=== PATIENT | male | born 1965 | race Hispanic/Latino ===

== ENCOUNTER 2021-01-08 14:26 | Emergency (ER) | payer BC ==
--- OUTSIDE RECORDS SUMMARY | 2021-01-08 14:29 | XMS REPORT | Continuity of Care Document ---
:1965 Author Organization [facility] t Address [address] [place] [address] Dr. Moore [address] [place] [id number] Care Team Providers Name Role Phone Dianna GARCES T Attending Clinician Problems This patient has no known problems. Allergies, Adverse Reactions, Alerts This patient has no known allergies or adverse reactions. Medications This patient has no known medications. Procedures This patient has no known procedures. Encounters Start End Encounter Admission Attending Care Care Encounter Source Date/Time Date/Time Type Type Clinicians Facility Department ID 2020-12-28 2020-12-28 Office HAILEE Bustamante [id number] 13:16:47 13:44:07 Visit Radha Corado [id number] [place] [id number] [place] [id number] nal 085 Building Results This patient has no known results.
[2021-01-08 16:18] LABS: Urine Blood 2+ (Negative); Urine Glucose Negative (Negative); Urine Protein Negative (Negative)
[2021-01-08 17:06] LABS: Urine Amorphous Sediment TRACE /HPF (NONE SEEN); Urine Bacteria 20-50 /HPF (NONE SEEN)
--- NOTE | 2021-01-08 17:09 | RAD REPORT ---
EXAM DESCRIPTION: CT - Abdomen Pelvis Wo Contrast - 01/08/2021 4:47 pm CLINICAL HISTORY: Urinary retention COMPARISON: <Comparisons> TECHNIQUE: Axial [address] imaging of the abdomen and pelvis was performed without IV contrast. No IV contrast was given because of allergy, abnormal renal function, patient refusal or physician re quest. No oral contrast given. All CT scans are performed using dose optimization technique as appropriate and may include automated exposure control or mA/KV adjustment according to patient size. FINDINGS: Minimal scarring or atelectasis in each lung base. No cardiomegaly or pericardial effusion . Liver size is normal. 3.9 centimeter homogeneous thin-walled fluid attenuation mass is present segmen t IV most likely an incidental cyst. A few additional very small sub centimeter low-density areas are present too small to characterize on noncontrast imaging. Liver attenuation is borderline to mild fa tty infiltrated. Spleen and pancreas show no suspicious findings. Thickened bile or sandlike stones collect in the dep endent portion of the gallbladder. No active gallbladder process seen. No biliary dilatation. Patient has mild bilateral hydronephrosis down to the UVJ level more prominent on the right. There ar e no obstructing or nonobstructing calculi seen. No significant adrenal finding. Isodense renal mass es and pyelonephritis cannot be excluded in the absence of IV contrast. Urinary bladder is fully cont racted around a Guthrie catheter. No bladder calculi seen. Bladder wall evaluation cannot be performed. Patient has an enlarged prostate gland. No dilated bowel loops or bowel wall thickening. No appendicitis findings. No free air, free fluid or inflammatory stranding. No hernia, mass or bulky lymphadenopathy. No suspicious bony findings. IMPRESSION: Mild bilateral hydronephrosis without obstructing calculus or mass identifiable. Bladder is fully contracted around a Guthrie catheter limiting assessment. Prostate gland is enlarged. Patient may have prostatic urethral outlet obstruction. Full assessment is limited is the absence of IV contrast. Nonacute findings detailed in the body of the report.
[2021-01-08 17:24] LABS: Basophils % 0.5 % (0-1.3); Hematocrit 44.6 % (39.6-49.0); Lymphocytes % 7.4 % (15.3-44.8); MPV 6.9 fL (7.6-11.3); RBC Red Blood Cell Count 5.18 M/uL (4.33-5.43)
[2021-01-08 17:34] LABS: Potassium 4.2 mmol/L (3.5-5.1)
[2021-01-08] MEDS ORDERED: CEFTRIAXONE/SWI 1gm 1 GM/10 ML SYR ONE (17:38)
--- NOTE | 2021-01-08 17:46 | ER ---
Nurse's Notes [facility] Name: Steve Smith Age: 55 yrs Sex: Male : 1965 Arrival Date: 01/08/2021 Time: 14:29 Bed 5 Private MD: Diagnosis: Retention of urine;Urinary tract infection, site not specified Presentation: 01/08 14:37 Chief complaint: Spouse and/or significant other states: "he has not been able to pee jd3 and if he has it is just a little trickle.". Coronavirus screen: At this time, the client does not indicate any symptoms associated with coronavirus-19. Ebola Screen: Patient negative for fever greater than or equal to 101.5 degrees Fahrenheit, and additional compatible Ebola Virus Disease symptoms. Initial Sepsis Screen: Does the patient meet any 2 criteria? No. Patient's initial sepsis screen is negative. Does the patient have a suspected source of infection? No. Patient's initial sepsis screen is negative. Risk Assessment: Do you want to hurt yourself or someone else? Patient reports no desire to harm self or others. Onset of symptoms was January 08, 2021. 14:37 Method Of Arrival: Ambulatory jd3 14:37 Acuity: GERTRUDIS 3 jd3 Historical: - Allergies: 14:39 No Known Allergies; jd3 - Home Meds: 14:39 prostate med [Active]; blood pressure med [Active]; jd3 - PMHx: 14:39 prostate problem; Hypertension; jd3 - PSHx: 14:39 Hernia repair; jd3 - Immunization history:: Adult Immunizations up to date. - Social history:: Smoking status: Patient denies any tobacco usage or history of. Screenin:47 Abuse screen: Denies threats or abuse. Denies injuries from another. Nutritional ss screening: No deficits noted. Tuberculosis screening: Never had TB. Fall Risk None identified. Assessment: 15:30 General: Appears in no apparent distress. Behavior is calm, cooperative. Pain: Pain ss currently is 10 out of 10 on a pain scale. Neuro: Level of Consciousness is awake, alert, obeys commands, Oriented to person, place, time, situation. Cardiovascular: Patient's skin is warm and dry. Respiratory: Respiratory effort is even, unlabored, Respiratory pattern is regular, symmetrical. GI: No signs and/or symptoms were reported involving the gastrointestinal system. : Reports inability to void. EENT: No signs and/or symptoms were reported regarding the EENT system. Derm: Skin is pink, warm \\T\\ dry. Musculoskeletal: No signs and/or symptoms reported regarding the musculoskeletal system. 17:19 Reassessment: Patient appears in no apparent distress at this time. Patient and/or hb family updated on plan of care and expected duration. Pain level reassessed. Patient is alert, oriented x 3, equal unlabored respirations, skin warm/dry/pink. 18:04 Reassessment: Patient appears in no apparent distress at this time. Patient and/or hb family updated on plan of care and expected duration. Pain level reassessed. Patient is alert/active/playful, equal unlabored respirations, skin warm/dry/pink. Vital Signs: 14:39 BP 166 / 95; Pulse 95; Resp 17 S; Temp 97.1(TE); Pulse Ox 98% on R/A; Weight 68.04 kg jd3 (R); Height 5 ft. 2 in. (158 cm) (R); Pain 10/10; 16:00 BP 153 / 81; Pulse 75; Resp 16; Pulse Ox 98% on R/A; hb 17:00 BP 152 / 80; Pulse 75; Resp 15; Pulse Ox 99% ; hb 14:39 Body Mass Index 27.12 (68.04 kg, 158 cm) jd3 ED Course: 14:29 Patient arrived in ED. ds1 14:38 Triage completed. jd3 14:41 Arm band placed on. jd3 14:42 Nic Sabillon NP is PHCP. pm1 14:42 Neno Sharpe MD is Attending Physician. pm1 15:40 Suzette Lerner, ROSA is Primary Nurse. ss 15:47 Patient has correct armband on for positive identification. Bed in low position. Call light in reach. Side rails up X 1. Adult w/ patient. 15:47 Bladder scan completed. 482mL. Patient maintains SpO2 saturation greater than 95% on ss room air. 15:55 Guthrie cath inserted, using sterile technique, 16 Fr., by ga, balloon inflated, to jd3 gravity drainage, urine specimen collected. 16:47 CT Abd/Pelvis - Without Contrast In Process Unspecified. EDMS 18:04 No provider procedures requiring assistance completed. IV discontinued, intact, hb bleeding controlled, No redness/swelling at site. Administered Medications: 17:36 Drug: Rocephin (cefTRIAXone) 1 grams Route: IV; Rate: calculated rate; Site: right hb antecubital; 17:37 Follow up: IV Status: Completed infusion; IV Intake: 10ml hb 17:53 Follow up: Response: No adverse reaction hb Intake: 17:37 IV: 10ml; Total: 10ml. hb Outcome: 17:45 Discharge ordered by MD. pm1 18:04 Discharged to home ambulatory, with family. hb 18:04 Condition: stable 18:04 Discharge instructions given to patient, family, Instructed on discharge instructions, follow up and referral plans. medication usage, Demonstrated understanding of instructions, follow-up care, medications, Prescriptions given X 1. 18:14 Patient left the ED. hb 18:23 Patient left the ED. hb Signatures: Dispatcher [facility] JonesCami ds1 Suzette Lerner RN RN ss Marinas, Patrick, NP BUTTON TACKER pm1 Elba Longoria RN RN hb Davies, Jonathon, RN RN jd3
--- NOTE | 2021-01-08 17:46 | EDPHYS ---
Physician Documentation [facility] Name: Steve Smith Age: 55 yrs Sex: Male : 1965 Arrival Date: 01/08/2021 Time: 14:29 Bed 5 Private MD: ED Physician Neno Sharpe HPI: 01/08 16:26 This 55 yrs old Male presents to ER via Ambulatory with complaints of Urinary pm1 Issue. 16:26 The patient presents with urinary symptoms, retention. Onset: The symptoms/episode pm1 began/occurred yesterday. Modifying factors: The symptoms are alleviated by nothing, the symptoms are aggravated by nothing. Associated signs and symptoms: Pertinent positives: abdominal pain, Pertinent negatives: fever. Severity of symptoms: in the emergency department the symptoms are actually worse. The patient has experienced similar episodes in the past, a few times. The patient has not recently seen a physician. Historical: - Allergies: 14:39 No Known Allergies; jd3 - Home Meds: 14:39 prostate med [Active]; blood pressure med [Active]; jd3 - PMHx: 14:39 prostate problem; Hypertension; jd3 - PSHx: 14:39 Hernia repair; jd3 - Immunization history:: Adult Immunizations up to date. - Social history:: Smoking status: Patient denies any tobacco usage or history of. ROS: 16:26 Constitutional: Negative for fever, chills, and weight loss, Cardiovascular: Negative pm1 for chest pain, palpitations, and edema, Respiratory: Negative for shortness of breath, cough, wheezing, and pleuritic chest pain. 16:26 Back: Negative for injury and pain. 16:26 MS/Extremity: Negative for injury and deformity, Skin: Negative for injury, rash, and discoloration. 16:26 Neuro: Negative for headache, weakness, numbness, tingling, and seizure. 16:26 Abdomen/GI: Positive for abdominal pain, Negative for nausea, vomiting, and diarrhea. 16:26 : Positive for difficulty urinating. 16:26 All other systems are negative. Exam: 16:26 Constitutional: This is a well developed, well nourished patient who is awake, alert, pm1 and in no acute distress. Head/Face: Normocephalic, atraumatic. 16:26 Back: No spinal tenderness. No costovertebral tenderness. Full range of motion. Skin: Warm, dry with normal turgor. Normal color with no rashes, no lesions, and no evidence of cellulitis. MS/ Extremity: Pulses equal, no cyanosis. Neurovascular intact. Full, normal range of motion. 16:26 Eyes: Exam is negative for acute changes, Extraocular movements: intact throughout, Conjunctiva: normal, Sclera: no acute changes. 16:26 ENT: Mouth: Lips: normal, Oral mucosa: normal, pink and intact, moist. 16:26 Cardiovascular: Rate: normal, Rhythm: regular, Pulses: no pulse deficits are appreciated. 16:26 Respiratory: Exam negative for acute changes, respiratory distress, shortness of breath. 16:26 Abdomen/GI: Inspection: abdomen appears normal, Palpation: soft, in all quadrants, mild abdominal tenderness, in the suprapubic area. 16:26 Neuro: Exam negative for acute changes, Orientation: is normal, Mentation: is normal, Motor: is normal, moves all fours. Vital Signs: 14:39 BP 166 / 95; Pulse 95; Resp 17 S; Temp 97.1(TE); Pulse Ox 98% on R/A; Weight 68.04 kg jd3 (R); Height 5 ft. 2 in. (158 cm) (R); Pain 10/10; 16:00 BP 153 / 81; Pulse 75; Resp 16; Pulse Ox 98% on R/A; hb 17:00 BP 152 / 80; Pulse 75; Resp 15; Pulse Ox 99% ; hb 14:39 Body Mass Index 27.12 (68.04 kg, 158 cm) jd3 MDM: 14:52 Patient medically screened. pm1 17:43 Data reviewed: vital signs. Data interpreted: Pulse oximetry: on room air is 99 %. pm1 Interpretation: normal. 17:43 Counseling: I had a detailed discussion with the patient and/or guardian regarding: the pm1 historical points, exam findings, and any diagnostic results supporting the discharge/admit diagnosis, lab results, radiology results, the need for outpatient follow up, a urologist, to return to the emergency department if symptoms worsen or persist or if there are any questions or concerns that arise at home. 01/08 15:04 Order name: Urine Microscopic Only; Complete Time: 17:42 pm1 01/08 16:18 Order name: Urine Dipstick-Ancillary; Complete Time: 16:34 EDMS 01/08 16:36 Order name: CBC with Diff pm1 01/08 16:36 Order name: BMP pm1 01/08 16:37 Order name: CBC with Automated Diff; Complete Time: 17:42 EDMS 01/08 16:37 Order name: Basic Metabolic Panel; Complete Time: 17:42 EDMS 01/08 15:04 Order name: Bladder Scanner; Complete Time: 15:47 pm1 01/08 15:04 Order name: Urine Dipstick-Ancillary (obtain specimen); Complete Time: 16:13 pm1 01/08 15:04 Order name: Guthrie; Complete Time: 15:55 pm1 01/08 16:11 Order name: CT Abd/Pelvis - Without Contrast; Complete Time: 17:11 pm1 01/08 17:07 Order name: Urine Culture EDMS 01/08 17:46 Order name: Leg Bag; Complete Time: 18:04 pm1 Administered Medications: 17:36 Drug: Rocephin (cefTRIAXone) 1 grams Route: IV; Rate: calculated rate; Site: right hb antecubital; 17:37 Follow up: IV Status: Completed infusion; IV Intake: 10ml hb 17:53 Follow up: Response: No adverse reaction hb Disposition: 01/08/21 17:45 Discharged to Home. Impression: Retention of urine, Urinary tract infection, site not specified. - Condition is Stable. - Discharge Instructions: Guthrie Catheter Care, Adult, Acute Urinary Retention, Male, Urinary Tract Infection, Adult. - Prescriptions for Bactrim DS 800- 160 mg Oral Tablet - take 1 tablet by ORAL route every 12 hours for 10 days; 20 tablet. - Medication Reconciliation Form, Thank You Letter, Antibiotic Education, Prescription Opioid Use form. - Follow up: Emergency Department; When: As needed; Reason: Worsening of condition. Follow up: Private Physician; When: 2 - 3 days; Reason: Recheck today's complaints, Continuance of care, Re-evaluation by your physician. - Problem is new. - Symptoms have improved. Signatures: Dispatcher [employer] EDMS Nic Sabillon, INTENSIVIST INTENSIVIST pm1 Elba Longoria RN RN hb Davies, Jonathon, RN RN Neno Perez MD MD ma2 Corrections: (The following items were deleted from the chart) 18:14 17:45 01/08/2021 17:45 Discharged to Home. Impression: Retention of urine; Urinary hb tract infection, site not specified. Condition is Stable. Forms are Medication Reconciliation Form, Thank You Letter, Antibiotic Education, Prescription Opioid Use. Follow up: Emergency Department; When: As needed; Reason: Worsening of condition. Follow up: Private Physician; When: 2 - 3 days; Reason: Recheck today's complaints, Continuance of care, Re-evaluation by your physician. Problem is new. Symptoms have improved. pm1 18:23 18:14 01/08/2021 17:45 Discharged to Home. Impression: Retention of urine; Urinary hb tract infection, site not specified. Condition is Stable. Discharge Instructions: Urinary Tract Infection, Adult, Guthrie Catheter Care, Adult, Acute Urinary Retention, Male. Prescriptions for Bactrim DS 800-160 mg Oral Tablet - take 1 tablet by ORAL route every 12 hours for 10 days; 20 tablet. and Forms are Medication Reconciliation Form, Thank You Letter, Antibiotic Education, Prescription Opioid Use. Follow up: Emergency Department; When: As needed; Reason: Worsening of condition. Follow up: Private Physician; When: 2 - 3 days; Reason: Recheck today's complaints, Continuance of care, Re-evaluation by your physician. Problem is new. Symptoms have improved. hb
[2021-01-08 18:19] VITALS: TEMP 97.1
[2021-01-08 18:23] VITALS: BP 152/80; O2SAT 99
== END 2021-01-08 18:23 | disposition home or self-care (01) ==
LOC: ER 14:26
DX: N39.0 Urinary tract infection, site not specified (principal); I10 Essential (primary) hypertension
CPT/HCPCS: 87088; 85025; 87086; 80048; 36415; 74176; J0696; 81003; 81015

== ENCOUNTER 2021-04-17 21:04 | Emergency (ER) | payer BC ==
[2021-04-17 21:50] LABS: Urine Blood 1+ (Negative); Urine Glucose Negative (Negative); Urine Protein Negative (Negative)
--- NOTE | 2021-04-17 22:17 | ER ---
Nurse's Notes [facility] Name: Steve Smith Age: 56 yrs Sex: Male : 1965 Arrival Date: 04/17/2021 Time: 21:08 Bed 19 Private MD: Diagnosis: Urinary Retention Presentation: 04/17 21:18 Chief complaint: Patient states: Pt's son states pt has had prostate treatment and had wg a catheter removed 2 weeks ago. Since, pt has had increased problems urinating and has produced minimal output with the urge to void. Pt c/o of bladder pain as well as pain to the shaft of his penis. 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 Pt started a new antibiotic today. Coronavirus screen: Vaccine status: Patient reports receiving the 2nd dose of the covid vaccine. Client denies travel out of the [place] in the last 14 days. At this time, the client does not indicate any symptoms associated with coronavirus-19. Coronavirus screen: Vaccine status: Patient reports being unvaccinated. Ebola Screen: Patient negative for fever greater than or equal to 101.5 degrees Fahrenheit, and additional compatible Ebola Virus Disease symptoms Patient denies exposure to infectious person. Patient denies travel to an Ebola-affected area in the 21 days before illness onset. Initial Sepsis Screen: Does the patient meet any 2 criteria? No. Patient's initial sepsis screen is negative. Does the patient have a suspected source of infection? No. Patient's initial sepsis screen is negative. Risk Assessment: Do you want to hurt yourself or someone else? Patient reports no desire to harm self or others. Onset of symptoms was March 27, 2021. 21:18 Method Of Arrival: Ambulatory 21:18 Acuity: GERTRUDIS 3 Triage Assessment: 21:23 General: Appears distressed, uncomfortable, well groomed. General: Behavior is cooperative, appropriate for age, restless. Pain: Complains of pain in bladder and penis Pain currently is 10 out of 10 on a pain scale. Historical: - Allergies: 21:23 No Known Allergies; wg - Home Meds: 21:23 sulfamethoxazole-trimethoprim Oral [Active]; wg - PMHx: 21:23 Prostate problem; Hypertension; wg - Immunization history:: Adult Immunizations up to date. - Social history:: Smoking status: Patient denies any tobacco usage or history of. Screenin:50 Abuse screen: Denies threats or abuse. Denies injuries from another. Nutritional bc5 screening: No deficits noted. Tuberculosis screening: No symptoms or risk factors identified. Fall Risk None identified. No fall in past 12 months (0 pts). No secondary diagnosis (0 pts). No IV (0 pts). Ambulatory Aid- None/Bed Rest/Nurse Assist (0 pts). Gait- Normal/Bed Rest/Wheelchair (0 pts) Mental Status- Oriented to own ability (0 pts). Total Hatch Fall Scale indicates No Risk (0-24 pts). Assessment: 21:52 Reassessment: Pt c/o urinary retention. Guthrie inserted using sterile technique, Pt bc5 tolerated well. Vital Signs: 21:18 BP 140 / 78; Pulse 86; Resp 18; Temp 98.9; Pulse Ox 99% on R/A; Weight 71.67 kg; Height wg 5 ft. 8 in. (172.72 cm); Pain 10/10; 22:44 BP 124 / 69; Pulse 75; Resp 15; Temp 98.5(O); Pulse Ox 100% on R/A; Pain 0/10; bc5 21:18 Body Mass Index 24.02 (71.67 kg, 172.72 cm) ED Course: 21:08 Patient arrived in ED. 21:14 Sudeep Hill PA is PHCP. [facility] 21:23 Triage completed. 21:24 Arm band placed on. 21:26 Sudeep Hill PA is PHCP. [facility] 21:26 Neno Sharpe MD is Attending Physician. [facility] 21:45 Keira Becerra, ROSA is Primary Nurse. bc5 21:50 No provider procedures requiring assistance completed. bc5 21:51 Patient has correct armband on for positive identification. Placed in gown. Bed in low bc5 position. Call light in reach. Side rails up X 1. Adult w/ patient. 21:52 Guthrie cath inserted, using sterile technique, 16 Fr., by ga, balloon inflated, to bc5 gravity drainage, clamped. urine specimen collected. 22:44 Patient did not have IV access during this emergency room visit. bc5 Administered Medications: No medications were administered Outcome: 22:16 Discharge ordered by MD. vaz 22:44 Discharged to home ambulatory, with family. bc5 22:44 Condition: improved 22:44 Discharge instructions given to patient, family, Instructed on discharge instructions, follow up and referral plans. leg bg vs drainage bag 22:45 Patient left the ED. bc5 Signatures: Sudeep Hill PA PA jmm Marsh, Wendy wm Gamba, Liam, RN wg Corado, Bella, RN RN bc5 Corrections: (The following items were deleted from the chart) 21:25 21:18 Chief complaint: Patient states: Pt's son states pt has had prostate treatment wg and had a catheter removed 2 weeks ago. Since, pt has had increased problems urinating and has produced minimal output with the urge to void. Pt c/o of bladder pain as well as pain to the shaft of his penis. 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 radha
--- NOTE | 2021-04-17 22:18 | EDPHYS ---
Physician Documentation [facility] Name: Steve Smith Age: 56 yrs Sex: Male : 1965 Arrival Date: 04/17/2021 Time: 21:08 Bed 19 Private MD: ED Physician Neno Sharpe HPI: 04/17 22:14 This 56 yrs old Male presents to ER via Ambulatory with complaints of Urinary jmm Problem. 22:14 The patient presents with urinary symptoms, unable to void. Onset: The symptoms/episode jmm began/occurred gradually, today. Modifying factors: The symptoms are alleviated by nothing, the symptoms are aggravated by nothing. Associated signs and symptoms: Pertinent positives: dysuria. The patient has experienced similar episodes in the past. Historical: - Allergies: 21:23 No Known Allergies; wg - Home Meds: 21:23 sulfamethoxazole-trimethoprim Oral [Active]; wg - PMHx: 21:23 Prostate problem; Hypertension; wg - Immunization history:: Adult Immunizations up to date. - Social history:: Smoking status: Patient denies any tobacco usage or history of. ROS: 22:14 Constitutional: Negative for fever, chills, and weight loss, Cardiovascular: Negative jmm for chest pain, palpitations, and edema, Respiratory: Negative for shortness of breath, cough, wheezing, and pleuritic chest pain. 22:14 : Positive for urinary symptoms. 22:14 All other systems are negative. Exam: 22:14 Constitutional: This is a well developed, well nourished patient who is awake, alert, jmm and in no acute distress. Head/Face: atraumatic. Eyes: EOMI, no conjunctival erythema appreciated ENT: Moist Mucus Membranes Neck: Trachea midline, Supple Chest/axilla: Normal chest wall appearance and motion. Cardiovascular: Regular rate and rhythm. No edema appreciated Respiratory: Normal respirations, no respiratory distress appreciated Abdomen/GI: Non distended, soft Back: Normal ROM Skin: General appearance color normal MS/ Extremity: Moves all extremities, no obvious deformities appreciated, no edema noted to the lower extremities Neuro: Awake and alert, normal gait Psych: Behavior is normal, Mood is normal, Patient is cooperative and pleasant Vital Signs: 21:18 BP 140 / 78; Pulse 86; Resp 18; Temp 98.9; Pulse Ox 99% on R/A; Weight 71.67 kg; Height wg 5 ft. 8 in. (172.72 cm); Pain 10/10; 22:44 BP 124 / 69; Pulse 75; Resp 15; Temp 98.5(O); Pulse Ox 100% on R/A; Pain 0/10; bc5 21:18 Body Mass Index 24.02 (71.67 kg, 172.72 cm) MDM: 21:34 Patient medically screened. [facility] 22:15 Data reviewed: vital signs, nurses notes. Counseling: I had a detailed discussion with milind the patient and/or guardian regarding: the historical points, exam findings, and any diagnostic results supporting the discharge/admit diagnosis, lab results, the need for outpatient follow up, to return to the emergency department if symptoms worsen or persist or if there are any questions or concerns that arise at home. ED course: A Guthrie catheter was placed by the RN. Patient expressed 1400 mL. Patient states having much relief. Abdominal discomfort is resolved, no painful urination. Patient will receive a leg bag and advised to follow-up with urology for further evaluation and otherwise given strict return precautions. Patient and family understood and agrees plan of care.. 04/17 21:50 Order name: Urine Dipstick-Ancillary; Complete Time: 21:50 [facility] 04/17 21:50 Order name: Urine Culture [facility] 04/17 21:26 Order name: Urine Dipstick-Ancillary (obtain specimen) 04/17 21:26 Order name: Guthrie; Complete Time: 21:45 [facility] 04/17 22:14 Order name: Leg Bag [facility] Administered Medications: No medications were administered Disposition Summary: 04/17/21 22:16 Discharge Ordered Location: Home [facility] Condition: Stable [facility] Diagnosis - Urinary Retention [facility] Followup: [facility] - With: Private Physician - When: 2 - 3 days - Reason: Recheck today's complaints, Continuance of care, Re-evaluation by your physician Discharge Instructions: - Discharge Summary Sheet [facility] - Acute Urinary Retention, Male [facility] Forms: - Medication Reconciliation Form [facility] - Thank You Letter harsha - Antibiotic Education [facility] - Prescription Opioid Use [facility] Addendum: 04/21/2021 04:34 Co-signature as Attending Physician, Neno Sharpe MD PA/[employer]'s history reviewed, m a2 patient interviewed, and examined. I agree with assessment and care plan and confirm the diagnosis (es) above. Signatures: Dispatcher [employer] EDSudeep Barnard PA PA jmm Alzahri, Mohammad, MD MD ma2 Anton French, RN wg
[2021-04-18 09:28] VITALS: BP 124/69; TEMP 98.5; O2SAT 100
== END 2021-04-17 22:45 | disposition home or self-care (01) ==
LOC: ER 21:04
DX: R33.9 Retention of urine, unspecified (principal); I10 Essential (primary) hypertension
CPT/HCPCS: 51702; 81003; 87086; 87088; 99284